=== PATIENT | female | born 1930 | race Caucasian/White ===

== ENCOUNTER 2017-11-23 08:00 | Outpatient (CLI) | payer MEDICARE | END 2017-11-23 08:01 | disposition home or self-care (01) | LOC: BICMAMMO 08:00 | PROVIDERS: ATTEND Family Medicine | DX: Z12.31 Encounter for screening mammogram for malignant neoplasm of breast (principal) | CPT/HCPCS: 77063; G0202; 77067 ==

== ENCOUNTER 2017-12-07 08:00 | Outpatient (CLI) | payer MEDICARE | END 2017-12-07 08:01 | disposition home or self-care (01) | LOC: BICMAMMO 08:00 | PROVIDERS: ATTEND Family Medicine | DX: N63.20 Unspecified lump in the left breast, unspecified quadrant (principal) | CPT/HCPCS: G0206; G0279 ==

== ENCOUNTER 2018-04-19 10:33 | Outpatient (CLI) | payer MEDICARE ==
--- NOTE | 2018-04-19 12:44 | RAD ---
TWO VIEWS OF THE CHEST: Date: 04-19-18 Comparison: 12-22-16 History: Dyspnea. FINDINGS: There is increased linear interstitial density with pulmonary hyperinflation suggesting COPD, stable. Prominent stable hiatal hernia noted. Atherosclerotic calcification in the aortic arch noted. No focal consolidation or alveolar edema. No pneumothorax or pleural fluid. IMPRESSION: Stable chronic findings as described above. POS: [facility]
== END 2018-04-19 10:34 | disposition home or self-care (01) ==
LOC: RAD 10:33
PROVIDERS: ATTEND Internal Medicine Critical Care Medicine
DX: R06.00 Dyspnea, unspecified (principal); J98.4 Other disorders of lung
CPT/HCPCS: 71046

== ENCOUNTER 2018-06-08 17:25 | Observation (INO) | payer MEDICARE ==
[2018-06-08 18:05] LABS: #Lymphocytes 1.4 thou/uL (1.20-3.40); #Monocytes 0.3 thou/uL (0.11-0.59); #Neutrophils 4.9 thou/uL (1.40-6.50); %Eosinophils 0.6 % (0.0-10.0); %Lymphocytes 21.3 % (21.0-51.0); %Monocytes 4.9 % (0.0-10.0); %Neutrophils 73.2 % (42.0-75.0); Hemoglobin 11.1 g/dL (12.0-16.0); Mean Corpuscular HGB CONC 34.7 g/dL (32.0-36.0); Mean Corpuscular Hemoglobin 32.6 pg (27.0-31.0); Mean Corpuscular Volume 93.8 fL (78.0-98.0); Mean Platelet Volume 7.1 fL (7.4-10.4); Platelet Count 227 thou/uL (130-400); White Blood Cell (WBC) Count 6.7 thou/uL (4.8-10.8)
[2018-06-08 18:28] LABS: ALT (SGPT) 18 U/L (8-55); AST (SGOT) 22 U/L (5-34); Albumin 3.5 g/dL (3.4-4.8); Alkaline Phosphatase 103 U/L (40-150); Anion Gap 13 mmol/L (10-20); BUN (Urea Nitrogen) 15 mg/dL (9.8-20.1); Bilirubin, Total 0.6 mg/dL (0.2-1.2); Calc. Creatinine Clearance 0 mL/min (70-130); Calcium 8.9 mg/dL (7.8-10.44); Carbon Dioxide 19 mmol/L (23-31); Chloride 105 mmol/L (98-107); Estimated GFR-MDRD 86; Globulin 2.6 g/dL (2.4-3.5); Glucose 114 mg/dL (83-110); Potassium 4.3 mmol/L (3.5-5.1); Protein, Total 6.1 g/dL (6.0-8.3); Sodium 133 mmol/L (136-145)
[2018-06-08 18:34] LABS: CKMB 1.4 ng/mL (0-6.6); Troponin I Less than 0.010 ng/mL (< 0.028)
--- NOTE | 2018-06-08 18:52 | CT ---
NONCONTRAST ENHANCED CT IMAGES OF THE BRAIN: 06/08/18 HISTORY: Dizziness. Fall. Nausea and vomiting. Noncontrast enhanced CT images of the brain obtained. Comparison made to previous exam from 06/02/12. CT images of the brain demonstrate the brain to be unremarkable. No evidence of intracranial masses, hemorrhages, strokes or contusions seen. Ventricles are of normal size. No evidence of calvarial frac tures seen. No evidence of sub or epidural hematoma is seen. No evidence of significant hydrocephalus or intracranial mass lesions or hemorrhages seen. IMPRESSION: Stable CT brain. POS: [facility]
--- NOTE | 2018-06-08 18:56 | RAD ---
ONE VIEW CHEST: 06/08/18 HISTORY: Vomiting, dizziness. AP view chest obtained on 06/08/18. COMPARISON: Comparison made to previous exam from 04/19/18. AP view chest demonstrates again a large hiatal hernia. Calcification of the aorta is seen. The lungs are well aerated. No evidence of acute intrathoracic abnormality seen. No evidence of effusions, pne umonia, or pneumothorax seen. IMPRESSION: Hiatal hernia, otherwise unremarkable AP view chest. POS: [facility]
[2018-06-08 19:02] LABS: Bilirubin Negative (Negative); Blood, Urine Negative (Negative); Clarity CLOUDY (Clear); Glucose, Urine (Dipstick) Negative (Negative); Leukocyte Large (Negative); Nitrite Negative (Negative); Protein, Urine (Dipstick) Negative (Neg-Trace); Specific Gravity, Urine 1.014 (1.002-1.036)
[2018-06-08 19:05] LABS: Bacteria/HPF 2+ HPF (None Seen); Hyaline Casts/LPF 0-3 HYALINE CAST LPF (0-3 Hyaline); RBC/HPF 0-3 HPF (0-3); Squamous Epithelial 0-3 HPF (0-3)
[2018-06-08 21:01] LABS: Troponin I Less than 0.010 ng/mL (< 0.028)
[2018-06-09 01:00] LABS: Troponin I 0.017 ng/mL (< 0.028)
[2018-06-09 06:52] VITALS: BMI 29.0
[2018-06-09] MEDS ORDERED: Ondansetron ODT 4 MG TAB PO PRN (15:36)
[2018-06-09] MEDS ORDERED: Acetaminophen 325 MG TAB PO PRN (15:36)
[2018-06-09] MEDS ORDERED: HYDROcodone/Acetaminophen 5/325 mg Tablet PO PRN (15:36)
--- NOTE | 2018-06-09 16:08 | HP ---
DATE OF ADMISSION: 06/09/2018 CHIEF COMPLAINT: Nausea and vomiting. HISTORY OF PRESENT ILLNESS: This is an 88-year-old white female with recent history of evaluation fo r aortic valve replacement. The patient had a thorough workup at [facility] for the schedule d procedure. She had all the workup completed and she was asked to hold the metformin. She takes at home and then she was okay to restart in few days. When the patient took her first dose, according to her, she started noticing nausea and vomiting associated with burning or passing urine and frequen t urination. She came to the ER and was noted to have a shailesh UTI, which she did not had few days ag o when she had a complete evaluation. Patient was assuming that symptoms of nausea and vomiting are related to the metformin, but patient has a shailesh UTI which could be contributing to her symptoms. S he has known history of type 2 diabetes mellitus, well-controlled on glipizide and metformin. She de nies having any chest pain, no diarrhea, no abdominal pain. No evidence of any altered mental status was noted. She denies having any fever with chills or rigors. She had no recent hospitalization. Her most recent hospitalization was more than 2 years ago. PAST MEDICAL HISTORY: 1. Type 2 diabetes mellitus. 2. Hyperlipidemia. PAST SURGICAL HISTORY: 1. History of cholecystectomy in the past. 2. History of tonsillectomy when she was young age and also history of hysterectomy. SOCIAL HISTORY: Patient is not a nonsmoker. No history of alcohol. She lives independently and her son who is the associate application developer also lives right next door. FAMILY HISTORY: No significant family history of coronary artery disease and no premature deaths in the family. ALLERGIES: PENICILLIN. HOME MEDICATIONS: 1. Aspirin 81 mg p.o. daily. 2. Ferrous sulfate 325 mg p.o. daily. 3. Glipizide 2.5 mg p.o. daily. 4. Ipratropium spray nasally daily. 5. Rosuvastatin 20 mg p.o. daily. REVIEW OF SYSTEMS: All 12 systems are reviewed with the patient thoroughly and found to be negative at this time. The following complete review of systems was negative, unless otherwise mentioned in t he HPI or below: Constitutional: Weight loss or gain, sense of well-being, ability to conduct usual activities, exerc ise tolerance. Skin/Breast: Rash, itching, changes in hair growth or loss, nail changes, breast lumps, tenderness, swelling, nipple discharge. Eyes: Vision, double vision, tearing, blind spots, pain. ENT/Mouth: Headaches (location, time of onset, duration, precipitating factors), vertigo, lightheadedness, injury. Vision, double vision, tearing, blind spots, pain, nose b leeding, colds, obstruction, discharge, dental difficulties, gingival bleeding, dentures, neck stiffn ess, pain, tenderness, masses in thyroid or other areas Cardiovascular: Precordial pain, substernal distress, palpitations, syncope, dyspnea on exertion, or thopnea, nocturnal paroxysmal dyspnea, edema, cyanosis, hypertension, heart murmurs, varicosities, ph lebitis, claudication. Respiratory: Pain, shortness of breath, wheezing, stridor, cough, hemoptysis, fever or night sweats Gastrointestinal: Poor appetite, dysphagia, indigestion, abdominal pain, heartburn, eructation, naus ea, vomiting, hematemesis, jaundice, constipation, or diarrhea, abnormal stools (narcisa-colored, tarry, bloody, greasy, foul smelling), flatulence, hemorrhoids, recent changes in bowel habits. Genitourinary: Urgency, frequency, dysuria, nocturia, hematuria, polyuria, oliguria, unusual (or yossi nge in) color of urine, stones, hesitancy, change in size of stream, dribbling, acute retention or in continence, libido, potency. Musculoskeletal: Pain, swelling, redness or heat of muscles or joints, limitation, of motion, muscul ar weakness, atrophy, cramps. Neurologic/Psychiatric: Convulsions, paralyses, tremor, incoordination, parasthesias, difficulties w ith memory of speech, sensory or motor disturbances, or muscular coordination (ataxia, tremor), emoti onal problems, anxiety, depression, previous psychiatric care, unusual perceptions, hallucinations. Allergy/Immunologic: Skin rash, anemia, bleeding tendency, polydipsia, polyuria, intolerance to heat or cold. PHYSICAL EXAMINATION: VITAL SIGNS: Blood pressure is 146/64, heart rate of 64, respiration rate 16, saturation 92%. GENERAL: The patient is moderately built and moderately nourished, does not appears to be in acute d istress at this time. She is alert and oriented x3. HEENT: Atraumatic, normocephalic. PERRLA. Extraocular muscles were intact. Oral mucosa is pink an d moist. CARDIOVASCULAR: S1, S2 normal. No murmurs, rubs or gallops. LUNGS: Bilateral air entry was equal. No wheezing, no crackles. ABDOMEN: Soft, nontender. No guarding or rebound tenderness. Bowel sounds normal. MUSCULOSKELETAL: No calf tenderness. No pedal edema. No joint tenderness, no joint swelling. SKIN: No cyanosis. No erythema. No rash. No pallor. CENTRAL NERVOUS SYSTEM: Cranial nerve examination intact. No focal deficits were noted. LABORATORY DATA: WBC 6.7, hemoglobin 11.1, hematocrit is 31.0, platelets are 227. Sodium 133, potas sium 4.3, chloride 105, BUN is 15, creatinine 0.65, blood sugar is 122. BNP is 348. UA was frankly positive for urinary tract infection. IMAGING DATA: CT of the head was negative. Chest x-ray was unremarkable. No evidence of any pneumo tulio. Chest x-ray has been reviewed by me. ASSESSMENT: 1. Acute intractable nausea and vomiting. 2. Acute urinary tract infection. 3. History of hypertension. 4. Type 2 diabetes mellitus. PLAN: 1. Plan is to closely monitor this patient. Patient has been thoroughly hydrated in the ER, she has elevated BNP. I would not start her on any IV fluids at this time. I will continue with Zofran and PPI. 2. Patient has shailesh UTI. We will start the patient on levofloxacin. We will wait for urine cultur es. If patient's white count remains stable tomorrow and she did not have any further symptoms, anju ent could be discharged home and monitor her urine cultures if resistant bug need to be called into [facility] office. 3. The patient has history of hyperlipidemia. We will continue the patient on rosuvastatin. The aaron saavedra has planned procedure later this month. If the patient remains septic, needs to be treated wit h IV antibiotics to complete the course. 4. Deep venous thrombosis prophylaxis, Lovenox 40 mg subcu daily. I spent 75 minutes with this patient.
[2018-06-09] MEDS: Famotidine/PF 20 mg/2ml Vial SLOW IVP SCH (19:51)
[2018-06-09] MEDS ORDERED: Aspirin 81 mg Enteric Coated Tablet PO SCH (21:00)
[2018-06-09] MEDS ORDERED: Rosuvastatin 20 MG TAB PO SCH (21:00)
[2018-06-09] MEDS: Ferrous Sulfate 325 MG TAB PO SCH (21:18)
[2018-06-10 05:02] LABS: Anion Gap 11 mmol/L (10-20); BUN (Urea Nitrogen) 17 mg/dL (9.8-20.1); Calc. Creatinine Clearance 68 mL/min (70-130); Calcium 9.1 mg/dL (7.8-10.44); Carbon Dioxide 26 mmol/L (23-31); Chloride 107 mmol/L (98-107); Estimated GFR-MDRD 77; Glucose 84 mg/dL (83-110); Potassium 3.9 mmol/L (3.5-5.1); Sodium 140 mmol/L (136-145)
[2018-06-10 05:10] LABS: #Eosinphils 0.4 thou/uL (0.0-0.7); #Lymphocytes 1.3 thou/uL (1.20-3.40); #Monocytes 0.5 thou/uL (0.11-0.59); #Neutrophils 3.2 thou/uL (1.40-6.50); %Basophils 0.2 % (0.0-1.0); %Eosinophils 7.7 % (0.0-10.0); %Lymphocytes 23.6 % (21.0-51.0); %Monocytes 9.8 % (0.0-10.0); %Neutrophils 58.7 % (42.0-75.0); Hemoglobin 10.9 g/dL (12.0-16.0); Mean Corpuscular HGB CONC 34.5 g/dL (32.0-36.0); Mean Corpuscular Hemoglobin 32.4 pg (27.0-31.0); Mean Corpuscular Volume 93.9 fL (78.0-98.0); Mean Platelet Volume 7.6 fL (7.4-10.4); Platelet Count 206 thou/uL (130-400); RBC Distribution Width 12.5 % (11.5-14.5); Red Blood Cell (RBC) Count 3.35 mill/uL (4.20-5.40); White Blood Cell (WBC) Count 5.4 thou/uL (4.8-10.8)
[2018-06-10] MEDS: Famotidine/PF 20 mg/2ml Vial SLOW IVP SCH (08:49)
[2018-06-10] MEDS: Ferrous Sulfate 325 MG TAB PO SCH (08:49)
[2018-06-10] MEDS ORDERED: Ipratropium Bromide 0.03% Nasal Inhaler 30 ml Bottle EA NARE SCH (09:00)
[2018-06-10] MEDS ORDERED: Enoxaparin Sodium 40 MG/0.4 ML SYRINGE SC SCH (09:00)
[2018-06-10 16:12] VITALS: BP 144/65; TEMP 98.5
--- NOTE | 2018-06-11 00:18 | DIS ---
DATE OF ADMISSION: 06/08/2018 DATE OF DISCHARGE: 06/10/2018 DISCHARGE DIAGNOSES: 1. Urinary tract infection, organism not identified. 2. Nausea and vomiting secondary to #1, resolved. 3. Diabetes mellitus, type 2, stable. 4. Hyperlipidemia. CONSULTATIONS: None. PERTINENT LABORATORY AND X-RAY FINDINGS: Basic metabolic profile within normal limits. LFTs within normal limits. BNP 349. Troponin I negative x3. CBC showed a hemoglobin of 11. Portable chest x-r ay dated 06/08/2018 showed no acute cardiopulmonary process. CT of the brain without contrast dated 06/08/2018 showed no acute intracranial process. HOSPITAL COURSE: The patient was observed on the telemetry unit after initially presenting with naus ea and vomiting. The patient underwent extensive evaluation including metabolic screening and neuro imaging with essentially negative findings. The patient was noted with urinalysis suspicious for inf ectious process and treated with IV Levaquin 500 mg daily. The patient with a history of recurrent u rinary tract infections with organisms to include Klebsiella and E. coli species. The patient contin ued on Levaquin with essentially resolution of her symptoms including nausea and vomiting. Telemetry monitoring showed sinus mechanism without evidence of acute arrhythmia or dysrhythmia. The patient was able to ambulate with the use of a rolling walker and tolerated regular oral intake. The patient 's vital signs remained stable and no recorded fever was noted. I have examined the patient at the t torri of discharge and discussed followup instructions, at which point the patient and daughter verbali zed agreement and understanding. The patient is ready for discharge on 06/10/2018. DISCHARGE MEDICATIONS: 1. Levaquin 500 mg one tab p.o. daily x5 days. 2. Enteric coated aspirin 81 mg p.o. daily. 3. Premarin cream topically daily. 4. Ferrous sulfate 324 mg p.o. b.i.d. 5. Glipizide XL 2.5 mg p.o. daily. 6. Atrovent nasal spray 2 sprays in each naris daily. 7. Crestor 20 mg p.o. daily. FOLLOWUP: The patient to follow up with her primary care provider, Dr. Vahid Mejía within 7 days of discharge. CONDITION ON DISCHARGE: Stable. ACTIVITY: Ad nneka. DIET: Heart healthy and ADA. CODE STATUS: FULL. DISPOSITION: Home on 06/10/2018.
[2018-06-11] MEDS ORDERED: Estrogens, Conjugated 30 GM TUBE TOP SCH (09:00)
== END 2018-06-10 16:10 | disposition home or self-care (01) ==
LOC: ERS 17:25 → 2SW 20:00
PROVIDERS: ADMIT Internal Medicine; ATTEND Internal Medicine
DX: N39.0 Urinary tract infection, site not specified (principal); E11.9 Type 2 diabetes mellitus without complications; E78.5 Hyperlipidemia, unspecified; I10 Essential (primary) hypertension; Z79.84 Long term (current) use of oral hypoglycemic drugs; Z79.899 Other long term (current) drug therapy; Z79.82 Long term (current) use of aspirin; Z88.0 Allergy status to penicillin
CPT/HCPCS: 70450; 71045; 80048; 80053; 82553; 82962 ×3; 83880; 84484 ×3; 85025 ×2; 93005; 96365; 96366 ×2; 96372; 96375; 96376; 97139 ×2; 99285; G0378; G8978; G8979; G8980; 36415; 36416; 81003; 81015; 96374; J1650; J1956; S0028

== ENCOUNTER 2018-12-11 09:27 | Outpatient (CLI) | payer MEDICARE ==
--- NOTE | 2018-12-11 11:03 | CT ---
CT CHEST NONCONTRAST: History: Lung nodule. FINDINGS: No comparison available. Within the lateral aspect of the right upper lobe, a noncalcified 0.4 cm nodule is approximately 6 mm from the pleural surface and is surrounded by minimal scarring or stranding. Within the posterior la teral aspect of the left upper lobe, a 0.3 cm noncalcified nodule is approximately 1.0 cm from the pl eural surface. Scattered areas of scarring within each lung extend the pleural surface. No lobar consolidation, pleu ral fluid, or pneumothorax. Lack of contrast limits evaluation of the soft tissues. No bulky mediastinal adenopathy. Prominent ar terial calcifications. Aortic valve stent. Large hiatal hernia. Renal cysts are partially visualized. IMPRESSION: 1. Tiny bilateral upper lobe subpleural nodules. Details above. 2. Atherosclerosis. POS: [facility]
== END 2018-12-11 09:28 | disposition home or self-care (01) ==
LOC: BICCT 09:27
PROVIDERS: ATTEND Internal Medicine Critical Care Medicine
DX: R91.1 Solitary pulmonary nodule (principal); R91.8 Other nonspecific abnormal finding of lung field; I70.90 Unspecified atherosclerosis
CPT/HCPCS: 71250

== ENCOUNTER 2018-12-11 09:33 | Outpatient (CLI) | payer MEDICARE | END 2018-12-11 09:34 | disposition home or self-care (01) | LOC: BICMAMMO 09:33 | PROVIDERS: ATTEND Family Medicine | DX: Z12.31 Encounter for screening mammogram for malignant neoplasm of breast (principal); R92.1 Mammographic calcification found on diagnostic imaging of breast | CPT/HCPCS: 77063; 77067 ==

== ENCOUNTER 2018-12-30 01:19 | Observation (INO) | payer MEDICARE ==
[2018-12-30] MEDS ORDERED: Nitroglycerin 2% Ointment 1 INCH/1 GM Packet ONE (01:41)
[2018-12-30 01:56] LABS: #Basophils 0.1 thou/uL (0.0-0.2); #Eosinphils 0.3 thou/uL (0.0-0.7); #Lymphocytes 3.6 thou/uL (1.20-3.40); #Monocytes 0.7 thou/uL (0.11-0.59); #Neutrophils 4.2 thou/uL (1.40-6.50); %Basophils 0.7 % (0.0-1.0); %Eosinophils 3.5 % (0.0-10.0); %Lymphocytes 40.9 % (21.0-51.0); %Monocytes 7.9 % (0.0-10.0); Hemoglobin 13.8 g/dL (12.0-16.0); Mean Corpuscular HGB CONC 33.8 g/dL (32.0-36.0); Mean Corpuscular Volume 94.7 fL (78.0-98.0); Mean Platelet Volume 7.7 fL (7.4-10.4); Platelet Count 182 thou/uL (130-400); White Blood Cell (WBC) Count 8.9 thou/uL (4.8-10.8)
[2018-12-30 02:02] LABS: Prothrombin Time 12.8 SEC (12.0-14.7)
[2018-12-30 02:03] LABS: PTT 28.5 SEC (22.9-36.1)
[2018-12-30 02:18] LABS: ALT (SGPT) 28 U/L (8-55); AST (SGOT) 34 U/L (5-34); Alkaline Phosphatase 119 U/L (40-150); Anion Gap 15 mmol/L (10-20); BUN (Urea Nitrogen) 22 mg/dL (9.8-20.1); Bilirubin, Total 0.4 mg/dL (0.2-1.2); Calc. Creatinine Clearance 0 mL/min (70-130); Carbon Dioxide 24 mmol/L (23-31); Chloride 105 mmol/L (98-107); Estimated GFR-MDRD 65; Globulin 3.2 g/dL (2.4-3.5); Glucose 93 mg/dL (83-110); Potassium 4.3 mmol/L (3.5-5.1); Protein, Total 7.2 g/dL (6.0-8.3); Sodium 140 mmol/L (136-145)
[2018-12-30] MEDS ORDERED: Aspirin Chewable 81 MG TAB ONE (02:53)
[2018-12-30 06:16] VITALS: BMI 28.8
--- NOTE | 2018-12-30 08:22 | CT ---
PRELIMINARY REPORT/[facility]/EMERGENCY AFTER HOURS PROCEDURE: EXAM: CT Head Without Contrast EXAM DATE/TIME: 12/30/2018 2:17 AM CLINICAL HISTORY: 88 years old, female; Signs and symptoms; Numbness / parasthesia; Left; Patient HX: Around 1900 start ed having tinlging in her lkeft fingers and numbness around the mouth and left sided facial droop jose t lasted 15 min and resolved. Patient called family due to same symptoms at 0000 which resolved. PT r eports she feels normal now. Family called cecilia who thought was anxiety. TECHNIQUE: Axial computed tomography images of the head/brain without contrast. COMPARISON: No relevant prior studies available. FINDINGS: Brain: Mild generalized volume loss of the brain. No intracranial hemorrhage. No brain edema. Ventricles: Symmetric ventriculomegaly out of proportion to the degree of sulcal prominence. Bones/joints: Unremarkable. No acute fracture. Sinuses: Visualized sinuses are unremarkable. No acute sinusitis. Mastoid air cells: Visualized mastoid air cells are unremarkable. No mastoid effusion. Soft tissues: Unremarkable. IMPRESSION: Ventriculomegaly, out of proportion to the degree of sulcal prominence, may be related to generalized /central volume loss. In the absence of prior studies, hydrocephalus is not excluded. Thank you for allowing us to participate in the care of your patient. Dictated and Authenticated by: Sid Munoz MD 12/30/2018 3:10 AM Central Time ([place] & [place]) FINAL REPORT EMERGENCY AFTER HOURS CT BRAIN: Date: 12/30/18 IMPRESSION: I agree with the preliminary report provided by [facility]. No acute intracranial abnormality demonstrated. The mild prominence of the lateral ventricles appear similar to the comparison dated 06/08/18 and MRI of the brain dated 06/03/12. Mild chronic small vessel white matter ischemic change is present. POS: [facility]
[2018-12-30] MEDS ORDERED: HumaLOG 300 UNITS/3 ML VIAL SC PRN (08:26)
[2018-12-30] MEDS ORDERED: Dextrose 5% in Water 1,000 ML IV PRN (08:26)
[2018-12-30] MEDS ORDERED: Acetaminophen 325 MG TAB PO PRN (08:26)
[2018-12-30] MEDS ORDERED: Dextrose 50% Abboject 50 ML SYRINGE SLOW IVP PRN (08:26)
--- NOTE | 2018-12-30 08:28 | CT ---
PRELIMINARY REPORT/[facility]/EMERGENCY AFTER HOURS PROCEDURE: EXAM: CT Angiography Head Without And With Contrast EXAM DATE/TIME: 12/30/2018 2:20 AM CLINICAL HISTORY: 88 years old, female; Signs and symptoms; Numbness; Patient HX: Around 1900 started having tinlging in her lkeft fingers and numbness around the mouth and left sided facial droop that lasted 15 min and resolved. Patient called family due to same symptoms at 0000 which resolved. PT reports she feels no rmal now. Family called cecilia who thought was anxiety. TECHNIQUE: Axial computed tomographic angiography images of the head without and with intravenous contrast using CT angiography protocol. MIP reconstructed images were created and reviewed. COMPARISON: CT Brain WO Con 12/30/2018 2:17 AM FINDINGS: Right internal carotid artery: Atherosclerotic calcification of the intracranial portion of the right internal carotid artery without luminal narrowing. Right anterior cerebral artery: Unremarkable. No occlusion or significant stenosis. No aneurysm. Right middle cerebral artery: Unremarkable. No occlusion or significant stenosis. No aneurysm. Right posterior cerebral artery: Unremarkable. No occlusion or significant stenosis. No aneurysm. Right vertebral artery: Unremarkable. No occlusion or significant stenosis. No aneurysm. Left internal carotid artery: Atherosclerotic calcification of the intracranial portion of the left i nternal carotid artery without luminal narrowing. Left anterior cerebral artery: Unremarkable. No occlusion or significant stenosis. No aneurysm. Left middle cerebral artery: Unremarkable. No occlusion or significant stenosis. No aneurysm. Left posterior cerebral artery: Unremarkable. No occlusion or significant stenosis. No aneurysm. Left vertebral artery: Unremarkable. No occlusion or significant stenosis. No aneurysm. Basilar artery: Unremarkable. No occlusion or significant stenosis. No aneurysm. HEAD: Brain: Unremarkable. No hemorrhage. No significant white matter disease. No edema. Ventricles: Normal. No ventriculomegaly. Bones/joints: Unremarkable. No acute fracture. Sinuses: Visualized sinuses are normal. No fluid levels. Mastoid air cells: Visualized mastoids are normal. No mastoid effusion. Soft tissues: Unremarkable. IMPRESSION: No acute vascular findings. EXAM: CT Angiography Neck With Contrast EXAM DATE/TIME: 12/30/2018 2:20 AM CLINICAL HISTORY: 88 years old, female; Signs and symptoms; Numbness; Patient HX: Around 1900 started having tinlging i n her lkeft fingers and numbness around the mouth and left sided facial droop that lasted 15 min and resolved. Patient called family due to same symptoms at 0000 which resolved. PT reports she feels nor mal now. Family called cecilia who thought was anxiety. TECHNIQUE: Axial computed tomographic angiography images of the neck with intravenous contrast using CT angiogra phy protocol. MIP reconstructed images were created and reviewed. COMPARISON: CT Brain WO Con 12/30/2018 2:17 AM FINDINGS: VASCULATURE: Right common carotid artery: Normal. No significant stenosis. No dissection or occlusion. Right internal carotid artery: Heavy atherosclerotic calcification of the right carotid bulb and prox imal right internal carotid artery. Exact degree of narrowing of the proximal right internal carotid artery difficult to assess due to lack of conventional volumetric sagittal and coronal reconstruction s; however, there is at least 50%, potentially 50-69% short segment narrowing of the proximal right i nternal carotid artery. No thrombosis or occlusion. Right external carotid artery: Normal. No occlusion or significant stenosis. Right vertebral artery: Normal. No significant stenosis. No dissection or occlusion. Left common carotid artery: Normal. No significant stenosis. No dissection or occlusion. Left internal carotid artery: Heavy atherosclerosis of the left carotid bulb and proximal left program management intern al carotid artery with approximately 50% luminal narrowing of the proximal left internal carotid artery. No thrombosis or occlusion. Left external carotid artery: Normal. No occlusion or significant stenosis. Left vertebral artery: Normal. No significant stenosis. No dissection or occlusion. NECK: Bones/joints: No acute fracture. Soft tissues: Normal. No significant soft tissue swelling. IMPRESSION: 1. Heavy atherosclerotic calcification of the right carotid bulb and proximal right internal carotid artery. Exact degree of narrowing of the proximal right internal carotid artery difficult to assess d ue to lack of conventional volumetric sagittal and coronal reconstructions; however, there is at least 50%, potenti ally 50-69% short segment narrowing of the proximal right internal carotid artery. No thrombosis or o cclusion. 2. Heavy atherosclerosis of the left carotid bulb and proximal left internal carotid artery with appr oximately 50% luminal narrowing of the proximal left internal carotid artery. No thrombosis or occlus ion. COMMENT: Reference per NASCET criteria for degree of stenosis: Mild: <50% stenosis. Moderate: 50-69% stenosis. Severe: 70-94% stenosis. Near occlusion: 95-99% stenosis. Thank you for allowing us to participate in the care of your patient. Dictated and Authenticated by: Sid Munoz MD 12/30/2018 3:21 AM Central Time ([place] & [place]) FINAL REPORT EMERGENCY AFTER HOURS CTA HEAD AND NECK UTILIZING IV CONTRAST AND 3D REFORMATTED IMAGING: IMPRESSION: I agree with the preliminary report provided by [facility]. There is prominent right carotid and proximal right internal carotid atherosclerotic calcification ca using 75% luminal caliber narrowing. There is 65% luminal caliber narrowing involving the left carotid bulb and proximal left internal car otid artery. No additional hemodynamically significant stenosis is demonstrated. No intracranial larg e vessel occlusion is evident. 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 There is mild chronic small vessel whit e matter ischemic change. No area of abnormal enhancement is noted. Visualized soft tissues of the neck appear within normal limits. No pathologically enlarged lymph nod es are grossly evident. The lung apices are clear. There is scattered degenerative change of the visu alized cervical thoracic spine. The visualized mastoid air cells and paranasal sinuses are clear. The skull is intact. POS: [facility]
[2018-12-30] MEDS ORDERED: Aspirin 325 mg Enteric Coated Tablet PO SCH ×3 (09:00→12:15)
[2018-12-30] MEDS: Enoxaparin Sodium 40 MG/0.4 ML SYRINGE SC SCH (09:07)
[2018-12-30] MEDS: Rosuvastatin 20 MG TAB PO SCH (09:07)
--- NOTE | 2018-12-30 10:30 | HP ---
PRIMARY CARE PHYSICIAN: Dr. Ybarra. CV SURGEON: . CHIEF COMPLAINT: Numbness on the left side of the face and slurred speech. HISTORY OF PRESENT ILLNESS: Ms. Chambers is a pleasant 88-year-old female, who has a history of diabetes mellitus and previous cerebrovascular accident. She was in her usual state of health until 7:30 last night when she noticed some numbness on the left side of her face. She also noted that her speech seemed a bit slurred. She also noted some tingling in the last three fingers on the left hand. She says it only lasted about 15 minutes and her symptoms went away completely. They returned about 12:30 a.m. This time, she called her primary care physician, who recommended that she go to the ER for evaluation. In the ER, she had a CT scan of the brain, which was negative for any acute changes and also had a CT angiogram. The CTA showed some findings of approximately 50% stenosis in the left internal carotid and 50% to 69% stenosis in the right internal carotid and she is being admitted for probable TIA. She says her symptoms have completely resolved. Prior to this, she did not have any headaches or dizziness. No chest pain. No shortness of breath. No upper or lower extremity weakness. REVIEW OF SYSTEMS: All systems were reviewed and are negative except for that mentioned in the history of present illness. PAST MEDICAL HISTORY: Significant for diabetes mellitus and cerebrovascular accident. She denies hypertension. PAST SURGICAL HISTORY: She has had a cholecystectomy, tonsillectomy, hysterectomy, and aortic valve replacement. FAMILY HISTORY: Significant for heart disease. ALLERGIES: TO PENICILLIN. SOCIAL HISTORY: She is a nonsmoker and nondrinker. She is . She would like to be a full code. She has not designated a surrogate decision maker. MEDICATIONS: Include; 1. Metoprolol-XL 25 mg daily. 2. Glipizide 2.5 mg daily. 3. Crestor 20 mg daily. 4. Aspirin 81 mg a day. PHYSICAL EXAMINATION: GENERAL: She is alert and oriented. She appears to be in no acute distress. She is well developed and well nourished. VITAL SIGNS: Blood pressure was 189/79, heart rate 69, respiratory rate of 18, and temperature is 98. HEENT: Her pupils are equal, round, and reactive. Extraocular muscles are intact. Sclerae are anicteric. Throat; no erythema, no exudates. NECK: No adenopathy. No bruits. LUNGS: Her lungs are clear to auscultation bilaterally. There are no wheezing, rales, or rhonchi. CARDIOVASCULAR: She had a normal S1, S2. There is no S3 or S4. No murmurs, clicks, or rubs. ABDOMEN: Obese. It is soft. It is nontender and nondistended. Positive for bowel sounds. There is no rebound or guarding. No organomegaly. EXTREMITIES: There is no calf tenderness. No joint effusions. NEUROLOGIC: Her cranial nerves 2 through 12 are grossly intact. Muscle strength is 5/5 in both upper and lower extremities. She has good senior systems administrator strength. There is no drift and she may have some very mild dysarthria. LABORATORY DATA: On her lab results; white blood cell count 8.9, hemoglobin 13.8, hematocrit is 40.8, platelet count is 182. INR is 1.0. Chemistry; the sodium is 140, potassium 4.3, chloride is 105, CO2 is 24, BUN of 22, creatinine 0.83, glucose is 93. Troponin is less than 0.010. CT scan of the brain was negative and this is by my reading, there was no evidence of any acute intracranial process, such as a bleed or obvious mass or stroke. EKG was sinus rhythm. ASSESSMENT: 1. This is an 88-year-old female, who presents with left facial numbness. She is at risk for stroke and that she is already been determined to have some degree of carotid artery disease and has had a previous stroke. She says shortly after having her valve replaced, she will be placed in observation. We will obtain an echo as well as an MRI. Monitor her for atrial fibrillation, check a lipid panel and consult Vascular Surgery for recommendations with regard to the CTA findings. 2. For diabetes mellitus, continue glyburide as well as a sliding scale insulin and further recommendations to follow. Job ID: [id number]
[2018-12-30] MEDS ORDERED: Aspirin 81 mg Enteric Coated Tablet PO SCH (12:15)
[2018-12-30] MEDS ORDERED: Clopidogrel Bisulfate 300 MG TAB PO SCH (12:15)
--- NOTE | 2018-12-30 13:41 | CON ---
DATE OF CONSULTATION: HISTORY OF PRESENT ILLNESS: This is an 88-year-old lady admitted after episode of slurred speech and droopy face. She had workup including CT angiography and CT scan of the brain. CT angiography was reviewed by me and shows calcified plaque in both carotid bulbs, right greater than left, with probably 60% to 70% stenosis in the right internal carotid artery. She had mild calcifications in the siphon and some mild disease in the great vessels off the aortic arch, but nothing severe. PAST MEDICAL HISTORY: Significant and that the patient underwent TAVR in [place] last summer. According the family workup at that time, showed no significant carotid artery disease. She also has a history of diabetes mellitus. PAST SURGICAL HISTORY: Includes the TAVR, cholecystectomy, tonsillectomy, and hysterectomy. SOCIAL HISTORY: She is , lives next door to her son. HOME MEDICATIONS: Include: 1. Metoprolol 25 a day. 2. Aspirin 81 a day. 3. Crestor 20 a day. 4. Glipizide 2.5 a day. She did have a 3-month course of Plavix following her TAVR. PHYSICAL EXAMINATION: GENERAL: Elderly lady, in no distress. NEUROLOGIC: Unremarkable at this time. NECK: No carotid bruits. CARDIAC: Regular rate and rhythm with a systolic murmur across her aortic valve. LUNGS: Clear to auscultation anteriorly. EXTREMITIES: Without edema. At this time, given the fact that her carotid artery disease does not appear to be critical, I would suggest adding Plavix to her antiplatelet regimen. It is possible that she could have some ulcerated plaque in the right internal carotid artery, although, this is not obvious on the CT scan. If her symptoms recur on dual antiplatelets, consideration could be given to a right carotid endarterectomy. In the interim, she is undergoing an echo today to evaluate her aortic valve prosthesis and assuming that this is functioning normally. Would proceed with aspirin and Plavix and discharge. If there is concern about the aortic valve, then perhaps Coumadin instead of Plavix would be an option. Job ID: [id number]
[2018-12-30] MEDS ORDERED: ISOVUE-370 76%-LOCM 1 ML ONE (16:52)
[2018-12-31 06:31] LABS: Cardiac Risk 3.3 (Less than 4.5)
[2018-12-31] MEDS ORDERED: Aspirin 81 mg Enteric Coated Tablet PO SCH (09:00)
[2018-12-31] MEDS ORDERED: Clopidogrel Bisulfate 75 MG TAB PO SCH (09:00)
[2018-12-31] MEDS: Enoxaparin Sodium 40 MG/0.4 ML SYRINGE SC SCH (09:25)
[2018-12-31] MEDS: Rosuvastatin 20 MG TAB PO SCH (09:25)
[2018-12-31] MEDS: HumaLOG 300 UNITS/3 ML VIAL SC PRN ×2 (11:48→17:51)
[2018-12-31 15:41] VITALS: BP 135/62; TEMP 97.9
--- NOTE | 2018-12-31 16:43 | MRI ---
MRI BRAIN WITHOUT CONTRAST: DATE: 12/31/2018. COMPARISON: 06/03/2012. HISTORY: Transient ischemic attack. TECHNIQUE: Multiplanar, multisequence MR imaging of the brain is provided without contrast. FINDINGS: The diffusion weighted imaging demonstrates no evidence for acute infarction. The axial gradient echo imaging demonstrates no evidence for intracranial hemorrhage. The visualized paranasal sinuses/mastoid air cells are well aerated. Arterial flow voids at axial level of skull base appear grossly unremarkable on the T2 weighted imagi ng. Regional bone marrow signal intensity appears within normal limits. Stable cerebral volume loss with prominence of the CSF-containing spaces noted. Lateral ventricles are prominent when compared to the prior examination performed in 2011. There are a few scattered foci of increased FLAIR signal in the periventricular white matter and subc ortical white matter suggesting mild small-vessel disease. IMPRESSION: Stable brain MRI demonstrating no evidence for intracranial hemorrhage or acute infarction. POS: KEATON
--- NOTE | 2018-12-31 17:56 | PDOC.PN ---
- Subjective Encounter Start Date: 12/31/18 Encounter Start Time: 17:54 Ms. Chambers was seen today in follow-up of TIA. She has not had any more numbness on the left side of the face, or any hand tingling. - Objective Resuscitation Status - Order Detail: 12/30/18 08:21 Resuscitation Status Routine Resuscitation Status: FULL: Full Resuscitation MAR Reviewed: Yes Vital Signs & Weight: Vital Signs (12 hours) Temp Pulse Resp BP Pulse Ox 12/31/18 15:40 97.9 F 64 16 135/62 95 12/31/18 11:55 98 F 61 16 123/60 95 12/31/18 07:32 98.2 F 67 17 175/72 H 96 Weight Weight 168 lb I&O: 12/30/18 12/31/18 01/01/19 06:59 06:59 06:59 Intake Total 600 400 Balance 600 400 Result Diagrams: 12/30/18 01:33 12/30/18 01:33 Additional Labs: Accuchecks 12/31/18 12/31/18 12/31/18 16:50 11:00 06:01 POC Glucose 197 H 169 H 93 12/30/18 12/30/18 12/30/18 20:21 17:56 16:54 POC Glucose 312 H 157 H 67 L Phys Exam - Physical Examination HEENT: PERRLA Respiratory: no wheezing, no rales, no rhonchi, clear to auscultation bilateral Cardiovascular: RRR, no significant murmur, no rub Gastrointestinal: soft, non-tender, no distention, positive bowel sounds Musculoskeletal: no edema Neurological: non-focal, normal sensation Psychiatric: normal affect, A&O x 3 Dx/Plan (1) TIA (transient ischemic attack) Code(s): G45.9 - TRANSIENT CEREBRAL ISCHEMIC ATTACK, UNSPECIFIED Status: Acute (2) Hypertension Code(s): I10 - ESSENTIAL (PRIMARY) HYPERTENSION Status: Acute (3) Diabetes mellitus type 2 in nonobese Code(s): E11.9 - TYPE 2 DIABETES MELLITUS WITHOUT COMPLICATIONS Status: Acute - Plan * TIA- her symptoms have resolved * MRI of the brain is negative * She is stable for discharge and will follow-up with Echo results with her Vascular Surgeon .
--- NOTE | 2018-12-31 19:07 | DIS ---
DATE OF ADMISSION: 12/30/2018 DATE OF DISCHARGE: 12/31/2018 PRIMARY CARE PHYSICIAN: Dr. Ybarra. DISCHARGE DISPOSITION: Home. PRIMARY DISCHARGE DIAGNOSES: 1. Transient ischemic attack. 2. Hypertension. 3. Diabetes mellitus, type 2. 4. Previous cerebrovascular accident. 5. History of aortic valve replacement. DISCHARGE MEDICATIONS: Include; 1. Aspirin 81 mg daily. 2. Plavix 75 mg daily. 3. Crestor 20 mg daily. 4. Metoprolol succinate 25 mg daily. 5. Metformin 500 mg daily. 6. Glipizide 2.5 mg twice a day. 7. Iron sulfate 325 mg twice a day. PROCEDURES: Procedures done during the admission: The patient had a CT of the brain, which was negative for any acute intracranial abnormality. There is some mild prominence of the ventricles. The patient had a CT angiogram of the brain and [place], showing there was heavy calcification of the right carotid bulb with at least 50% to 69% narrowing at the proximal right internal carotid artery. There was also heavy arthrosclerosis of the left carotid bulb with approximately 50% luminal narrowing. After utilizing IV contrast and 3D reformatted imaging, they noticed approximately 75% narrowing of the right internal carotid and 65% of the left carotid bulb. The patient had an MRI of the brain, which was negative. CODE STATUS: Full code. ALLERGIES: TO PENICILLIN. HOSPITAL COURSE: Ms. Chambers is a pleasant 88-year-old female, who presented to the emergency room with left-sided facial numbness as well as tingling in her fingertips. It only lasted about 15 to 20 minutes, but there were 2 episodes. She has a history of previous cerebrovascular accident as well as risk factors including hypertension and diabetes for cerebrovascular disease. For this reason, she came to the ER for evaluation. She was placed in observation and a CT angiogram was obtained. There was some area of narrowing in both the right and left internal carotid arteries. For this reason, Vascular Surgery was consulted. Plavix was added to her regimen, and it was recommended that she have close followup, and she plans to follow up with her vascular surgeon in the outpatient setting within a few days and also to follow up with the echo results with her vascular surgeon, Dr. Blanton, who practices at the [facility], and also to follow up with her primary care physician in 1 to 2 weeks. Job ID: [id number]
[2018-12-31] MEDS ORDERED: Ferrous Sulfate 325 MG TAB PO SCH (21:00)
--- NOTE | 2019-01-05 15:28 | EKG ---
Test Reason : Blood Pressure : / mmHG Vent. Rate : 076 BPM Atrial Rate : 076 BPM P-R Int : 180 ms QRS Dur : 084 ms QT Int : 386 ms P-R-T Axes : 086 -23 048 degrees QTc Int : 434 ms Normal sinus rhythm Cannot rule out Anterior infarct , age undetermined Abnormal ECG Confirmed by ANTONINA ARMENDARIZ, FELIPE ([id number]), videotape editor STEPHANY WEAVER ([id number]) on 01/05/2019 3:28:28 PM Referred By: Confirmed By:FELIPE SARKAR MD
== END 2018-12-31 19:50 | disposition home or self-care (01) ==
LOC: ERS 01:19 → 2SE 04:11
PROVIDERS: ADMIT Hospitalist; ATTEND Hospitalist
DX: G45.9 Transient cerebral ischemic attack, unspecified (principal); I10 Essential (primary) hypertension; E11.9 Type 2 diabetes mellitus without complications; Z86.73 Personal history of transient ischemic attack (TIA), and cerebral infarction without residual deficits; Z90.49 Acquired absence of other specified parts of digestive tract; Z90.710 Acquired absence of both cervix and uterus; Z90.89 Acquired absence of other organs; Z95.2 Presence of prosthetic heart valve; Z88.0 Allergy status to penicillin; Z79.84 Long term (current) use of oral hypoglycemic drugs; Z79.82 Long term (current) use of aspirin; Z79.02 Long term (current) use of antithrombotics/antiplatelets; Z79.899 Other long term (current) drug therapy
CPT/HCPCS: 70450; 70496; 70498; 70551; 80053; 80061; 82962 ×2; 84484; 85025; 85610; 85730; 93005; 93306; 96372 ×2; 99285; G0378; 36415; 36416; J1650; Q9966

== ENCOUNTER 2019-04-22 18:59 | Emergency (ER) | payer MEDICARE ==
[2019-04-22] MEDS ORDERED: Ketorolac Tromethamine 30 MG/ML VIAL ONE (19:58)
--- NOTE | 2019-04-22 20:52 | CT ---
Noncontrast enhanced images abdomen pelvis. [place] history: Back pain leg pain Noncontrast enhanced images of the abdomen pelvis obtained with sagittal and structures images of the lumbar spine. A large hiatal hernia is present. The liver and spleen are unremarkable. The gallbladder is been surgically removed. The pancreas is unremarkable. Adrenal glands are unremarkable. Cortical cyst seen in the mid to lower pole of the right kidney. Atherosclerotic calcination seen in the abdominal aorta. No dilated loops of small bowel seen. Colonic diverticulosis is present. A large amount of stool is seen in the rectum concerning for fecal impaction. Multilevel lumbar interspace vertebral disc space desiccation seen involving the L2-3, L3-4 and L4-5 levels. There is mild anterolisthesis of L4 on L5. IMPRESSION: Fecal impaction.
[2019-04-22] MEDS ORDERED: Acetaminophen 500 MG TAB ONE (21:24)
== END 2019-04-22 21:39 | disposition home or self-care (01) ==
LOC: ERS 18:59
DX: M25.552 Pain in left hip (principal); K56.41 Fecal impaction; I10 Essential (primary) hypertension; D64.9 Anemia, unspecified; E11.9 Type 2 diabetes mellitus without complications; E78.5 Hyperlipidemia, unspecified; Z79.899 Other long term (current) drug therapy; Z79.82 Long term (current) use of aspirin; Z86.73 Personal history of transient ischemic attack (TIA), and cerebral infarction without residual deficits; Z79.84 Long term (current) use of oral hypoglycemic drugs
CPT/HCPCS: 74176; 96374; J1885

== ENCOUNTER 2019-12-11 09:54 | Outpatient (CLI) | payer MEDICARE ==
--- NOTE | 2019-12-11 11:30 | CT ---
CT Chest WO Con HISTORY: Pulmonary nodule COMPARISON: 12/11/2018 FINDINGS: Absence of IV contrast reduces the sensitivity of the exam particularly for evaluation of m ediastinal, hilar and vascular structures. The 4 mm solid nodule in the right upper lobe, 3 mm solid nodule in the left upper lobe and 5 mm sunil d nodule in the left lower lobe remains stable. Scattered areas of scarring are again seen bilaterally. No lobar consolidation, pneumothorax, pleural or pericardial effusions are seen. The large hiatal hernia, 2.2 cm right adrenal adenoma, 16 mm left adrenal adenoma and incompletely vi sualized right renal cyst are again seen. IMPRESSION: Stable exam.
== END 2019-12-11 09:55 | disposition home or self-care (01) ==
LOC: BICCT 09:54
PROVIDERS: ATTEND Internal Medicine Critical Care Medicine
DX: R91.1 Solitary pulmonary nodule (principal)
CPT/HCPCS: 71250

== ENCOUNTER 2019-12-13 09:57 | Outpatient (CLI) | payer MEDICARE ==
--- NOTE | 2019-12-13 10:40 | MMO ---
Bilateral MAMMO Bilat Screen [facility]. CLINICAL HISTORY: Patient is 89 years old and is seen for screening. The patient has no family history of breast cancer. The patient has no personal history of cancer. The patient has a history of right Excisional Biopsy in 1996 - benign findings. VIEWS: The views performed were: bilateral craniocaudal with tomosynthesis and bilateral mediolateral oblique with tomosynthesis. FILMS COMPARED: The present examination has been compared to prior imaging studies performed at [facility] on 11/14/2016, 11/23/2017, 12/07/2017 and 12/11/2018. This study has been interpreted with the assistance of computer-aided detection. MAMMOGRAM FINDINGS: The breasts are heterogeneously dense, which could obscure a lesion on mammography. There are stable benign appearing calcifications seen in both breasts. There are also vascular calcifications. There are no suspicious masses, suspicious calcifications, or new areas of architectural distortion. IMPRESSION: THERE IS NO MAMMOGRAPHIC EVIDENCE OF MALIGNANCY. A ROUTINE FOLLOW-UP MAMMOGRAM IN 1 YEAR IS RECOMMENDED. THE RESULTS OF THIS EXAM WERE SENT TO THE PATIENT. ACR BI-RADS Category 2 - Benign finding MAMMOGRAPHY NOTE: 1. A negative mammogram report should not delay a biopsy if a dominant of clinically suspicious mass is present. 2. Approximately 10% to 15% of breast cancers are not detected by mammography. 3. Adenosis and dense breasts may obscure an underlying neoplasm. Reported by: MICHAEL AMAYA MD Electonically Signed: [id number]
== END 2019-12-13 09:58 | disposition home or self-care (01) ==
LOC: BICMAMMO 09:57
PROVIDERS: ATTEND Family Medicine
DX: Z12.31 Encounter for screening mammogram for malignant neoplasm of breast (principal); Z91.89 Other specified personal risk factors, not elsewhere classified
CPT/HCPCS: 77063; 77067

== ENCOUNTER 2021-04-05 10:11 | Outpatient (CLI) | payer MEDICARE | END 2021-04-05 10:12 | disposition home or self-care (01) | LOC: BICRAD 10:11 | PROVIDERS: ATTEND Internal Medicine Critical Care Medicine | DX: R06.00 Dyspnea, unspecified (principal); I70.0 Atherosclerosis of aorta; J98.4 Other disorders of lung; M47.814 Spondylosis without myelopathy or radiculopathy, thoracic region | CPT/HCPCS: 71046 ==